=== PATIENT | female | born 1995 | race Caucasian/White ===

== ENCOUNTER 2020-12-06 11:09 | Inpatient (IN) | payer OTHER ==
[~2020-12-06] VITALS: Ht 165.1 cm; Wt 70.3 kg
[~2020-12-06 11:09] MED LIST: FERROUS SULFAT325 MG PO; PRENATAL TABLE1 EAC1 PO
[2020-12-06 11:59] LABS: HEMOGLOBIN 11.4 gm/dl (12.3-15.3); RED BLOOD COUNT 3.69 M/UL (4.00-5.10); WHITE BLOOD COUNT 10.9 K/UL (4.5-11.0)
[2020-12-06 12:31] LABS: BUN/CREATININE RATIO 12 (0-10)
--- NOTE | 2020-12-06 22:55 | NUR ---
AT 2130 OB NURSE CAME TO THE FLOOR TO OBTAIN FHT ON THE PATIENTS BABY. FHT WAS 150. TO BE DONE Q SHIFT.
--- NOTE | 2020-12-07 02:39 | NUR ---
PT RESTING IN BED PRESENTING WITH CHILLS. TOOK TEMPATURE AND IT WAS RECORDED AT 102.5. ADMIN TYLENOL AND REASSESED 1 HOUR LATER. TEMPATURE IS CURRENTLY 100.2
[2020-12-07 03:02] LABS: WHITE BLOOD COUNT 8.5 K/UL (4.5-11.0)
[2020-12-07 03:15] LABS: RED BLOOD COUNT 3.26 M/UL (4.00-5.10)
[2020-12-07 03:30] LABS: BUN/CREATININE RATIO 10 (0-10)
[2020-12-07 12:11] LABS: ADENOVIRUS F 40/41 Not Detected (Negative); ASTROVIRUS Not Detected (Negative); CLOSTRIDIUM DIFFICILE TOX A/B Not Detected (Negative); CRYPTOSPORIDIUM Not Detected (Negative); E.COLI 0157 Not Detected (Negative); ENTAMOEBA HISTOLYTICA Not Detected (Negative); ENTEROAGGREGATIVE E.COLI (EAEC Not Detected (Negative); ENTEROPATHOGENIC E.COLI (EPEC) Not Detected (Negative); ENTEROTOXIGENIC E.COLI (ETEC) Not Detected (Negative); GIARDIA LAMBLIA Not Detected (Negative); NOROVIRUS GI/GII Not Detected (Negative); PLESIOMONAS SHIGELLOIDES Not Detected (Negative); ROTOVIRUS A Not Detected (Negative); SALMONELLA Not Detected (Negative); SAPOVIRUS Not Detected (Negative); SHIG/ENTEROINVAS.ECOLI (EIEC) Not Detected (Negative); SHIGA-LIK TOX.PRO.E.COLI (STEC Not Detected (Negative); VIBRIO Not Detected (Negative); VIBRIO CHOLERAE Not Detected (Negative); YERSINIA ENTEROCOLITICA Not Detected (Negative)
[2020-12-07 14:43] LABS: CAMPYLOBACTER DETECTED (Negative)
--- NOTE | 2020-12-08 00:28 | NUR ---
HEART TONES ASSESSED Q SHIFT. FHT THIS SHIFT, ASSESSED BY OB NURSE WAS 156. PATIENT IN BED RESTING, WITH NO COMPLAINTS. BED LOCKED IN LOWEST POSITION, CALL LIGHT IN REACH, PERSONAL BELONGINGS IN REACH.
[2020-12-08 03:10] LABS: HEMOGLOBIN 9.3 gm/dl (12.3-15.3); RED BLOOD COUNT 3.03 M/UL (4.00-5.10)
[2020-12-08 03:44] LABS: WHITE BLOOD COUNT 5.9 K/UL (4.5-11.0)
[2020-12-08 03:48] LABS: BUN/CREATININE RATIO 8 (0-10)
--- NOTE | 2020-12-08 07:43 | NUR ---
HEART TONES TAKEN BY OB STAFF ON 12/07/20 RATE FROM 140-150. HEART TONES TAKEN BY OB STAFF ON 12/08/20 RATE AT 153.
[2020-12-08] MEDS ORDERED: MACROBID 100 M100 M1 PO (08:19)
[2020-12-08] MEDS ORDERED: CEFUROXIME500 MG PO (13:08)
== END 2020-12-08 14:04 | disposition home or self-care (01) | DRG 831 ==
LOC: ER1 11:09 → PROG CARE 16:00 → CDU 16:00 → PROG CARE 19:55
PROVIDERS: Emergency Medicine; Internal Medicine Infectious Disease; ADMIT Obstetrics & Gynecology
DX: O98.812 Other maternal infectious and parasitic diseases complicating pregnancy, second trimester (principal); A41.9 Sepsis, unspecified organism; O23.42 Unspecified infection of urinary tract in pregnancy, second trimester; E86.0 Dehydration; R00.0 Tachycardia, unspecified; O26.892 Other specified pregnancy related conditions, second trimester; E83.42 Hypomagnesemia; Z3A.01 Less than 8 weeks gestation of pregnancy; Z3A.24 24 weeks gestation of pregnancy; Z86.16 Personal history of COVID-19
CPT/HCPCS: 0240U; 36415; 71045; 76805; 80053; 80307; 81001; 82550; 82553; 83605; 83735; 83874; 84132; 84439; 84443; 84484; 85025; 85379; 87040; 87086; 87507; 90471; 96365; 96366; 96375; 99285; J0696; J3475; J7030

== ENCOUNTER 2021-03-05 00:46 | Outpatient (CLI) | payer OTHER ==
[~2021-03-05 00:46] MED LIST changes: +CEFUROXIME500 MG PO; +MACROBID 100 M100 M1 PO
== END 2021-03-05 03:16 | disposition home or self-care (01) ==
LOC: GENOP 00:46
DX: O62.4 Hypertonic, incoordinate, and prolonged uterine contractions (principal); Z3A.36 36 weeks gestation of pregnancy
CPT/HCPCS: 81001; 83518; G0463

== ENCOUNTER 2021-03-10 13:18 | Outpatient (CLI) | payer OTHER | END 2021-03-10 16:07 | disposition home or self-care (01) | LOC: GENOP 13:18 | DX: O36.8130 Decreased fetal movements, third trimester, not applicable or unspecified (principal); Z3A.36 36 weeks gestation of pregnancy | CPT/HCPCS: 81001; 96360 ==

== ENCOUNTER → 2021-10-27 | Outpatient (CLI) | payer OTHER | LOC: EXRD 07:59 | DX: R10.11 Right upper quadrant pain (principal) | CPT/HCPCS: 76705 ==

== ENCOUNTER 2022-07-13 11:10 | Emergency (ER) | payer OTHER ==
[2022-07-13] MEDS ORDERED: PROMETHAZINE12.5 M1 PO (13:31)
== END 2022-07-13 17:00 | disposition home or self-care (01) ==
LOC: ER1 11:10
DX: R51.9 Headache, unspecified (principal); L56.8 Other specified acute skin changes due to ultraviolet radiation; R40.2410 Glasgow coma scale score 13-15, unspecified time; Z79.899 Other long term (current) drug therapy
CPT/HCPCS: 96374; 99283; J1100; J1885; J2550